=== PATIENT | female | born 1980 | race Caucasian/White ===

== ENCOUNTER 2022-09-23 12:12 | Outpatient (CLI) | payer OTHER, SELFPAY ==
[2022-09-23 22:13] LABS: Albumin* 4.8 g/dL (3.3-5.0); Chloride* 106 mmol/L (96-114); Sodium* 142 mmol/L (135-149)
[2022-09-23 22:14] LABS: Potassium* 4.2 mmol/L (3.6-5.1)
[2022-09-23 22:16] LABS: Alkaline Phosphatase* 49 U/L (40-150); Aspartate Amino Transferase* 27 U/L (12-35); Bilirubin Direct* 0.2 mg/dL (0.0-0.5); Bilirubin Total* 0.6 mg/dL (0.1-1.5); Blood Urea Nitrogen* 18 mg/dL (5-24); Creatinine* 0.8 mg/dL (0.5-1.5); Estimated Glomerular Filt Rate 95 ml/min; Glucose* 85 mg/dL (60-115); Total Protein* 7.4 g/dL (6.0-8.3)
[2022-09-23 22:17] LABS: Alanine Aminotransferase* 35 U/L (4-35); Calcium* 9.5 mg/dL (8.4-10.6); Lipase* 49 U/L (23-300)
[2022-09-23 22:23] LABS: C Reactive Protein* < 0.5 mg/dL (0.5-1.0)
[2022-09-23 22:33] LABS: Carbon Dioxide* 27 mmol/L (20-32)
== END 2022-09-23 12:13 | disposition home or self-care (01) ==
PROVIDERS: PCP Emergency Medicine; Visit Provider Emergency Medicine
DX: R10.9 Unspecified abdominal pain (principal)
CPT/HCPCS: 80048; 80076; 83690; 86140; 87338

== ENCOUNTER 2023-05-19 10:15 | Emergency (ER) | payer OTHER, SELFPAY ==
[2023-05-19 10:23] VITALS: BP 143/96; PULSE 61; RESP 16; TEMP 36.8; O2SAT 100; BMI 25.1
--- NOTE | 2023-05-19 12:08 | ED_ITS ---
HPI - General Adult General Time Seen by Provider: 12:08 Date Seen: 05/19/23 Chief complaint: Skin/Abscess/Foreign Body Stated complaint: Lump on upper abdomen Time Seen by Provider: 05/19/23 12:08 Source: patient, RN notes reviewed and old records reviewed Mode of arrival: ambulatory Limitations: no limitations History of Present Illness HPI narrative: Patient is a 42-year-old female previously healthy who comes to the emergency room with concerns regarding increasing size of mass on her left lower ribcage. Patient notes that he is she has been evaluated twice previously and even had an ultrasound a year ago at which time she was told that this area was a bruise. She notes that it has continued to increase in size and she thinks there is some skin discoloration associated with it. It is also become a little more uncomfortable in the surrounding tissue. She does admit she finds she her soft touching this area frequently. Patient has not noted any unusual weight loss, night sweats. She does have a friend who was recently diagnosed with breast cancer with a similar finding. She notes that she has been attempting to get in to see her primary Dr. Martino at the [facility] and has been unsuccessful at that. She does not want to wait to the end of the month to have this evaluated as it is causing her anxiety. Related Data Allergies Allergy/AdvReac Type Severity Reaction Status Date / Time No Known Drug Allergies Allergy Verified 05/19/23 10:23 Review of Systems Status of ROS: Reports: 6 or more systems reviewed and unremarkable except as noted in History and below Narrative: States due for a mammogram soon. No history of cancer Const: Reports: fatigue (But reports this as unchanged in normal); Denies: fever Cardio: Denies: shortness of breath with exertion Resp: Denies: shortness of breath Integ/Breast: Reports: skin tenderness Endo: Reports: fatigue (But reports this as unchanged in normal) Bryan/Lymph: Denies: enlarged lymph nodes [facility] Medical History (Updated 05/19/23 @ 12:24 by Louise Chance MD) Abdominal pain ?R10.9 - Unspecified abdominal pain (ICD-10) Social History Smoking Status: Never smoker Do you use any of these nicotine containing products: None Second hand tobacco smoke exposure: No How often do you have a drink containing alcohol: 4 or more times a week How many standard drinks containing alcohol do you have on a typical day: 1 or 2 AUDIT-C Alcohol total score: 4 Non-prescribed substance use: denies use service: No Exam Narrative: Exam Narrative: Alert and oriented. Does appear somewhat worried and anxious. Breathing normally. Examination of abdomen shows no unusual findings. I do not see significant skin change. I do palpate a mobile mass measuring approximately 2-1/2 x 2 cm. This is beneath the skin surface. I do not see a port indicate that this is a sebaceous cyst. No supraclavicular lymphadenopathy. No axillary lymphadenopathy noted. Const: Vital Signs, click to edit/add: Vital Signs - 24 hr 05/19/23 10:23 Temperature 98.3 F Pulse Rate [Pulse Oximeter] 61 Respiratory Rate 16 Blood Pressure [Ri ght Upper Arm] 143/96 H Pulse Oximetry 100 Oxygen Delivery Me thod Room Air Documenting provider has reviewed patient's vital signs: yes Course Consultations Consultation #1: Was able to speak to 1 of her ultrasound techs who notes that previous ultrasound showed that this appear to appear to be like a lipoma with a some blood vessel nearby. There is no mention of bruise in this report and so I am not sure how that was communicated to Louise in the past. Vital Signs Vital signs: Initial Vital Signs Temperature 98.3 F 05/19/23 10:23 Temperature Source Temporal Artery Scan 05/19/23 10:23 Pulse Rate 61 05/19/23 10:23 Pulse Rhythm Regular 05/19/23 10:23 Pulse Strength 3+ Normal 05/19/23 10:23 Respiratory Rate 16 05/19/23 10:23 Blood Pressure 143/96 H 05/19/23 10:23 Blood Pressure Mean 111 H 05/19/23 10:23 Blood Pressure Position Sitting 05/19/23 10:23 Pulse Oximetry 100 05/19/23 10:23 Oxygen Delivery Method Room Air 05/19/23 10:23 Vital Signs Temperature 98.3 F 05/19/23 10:23 Pulse Rate 61 05/19/23 10:23 Respiratory Rate 16 05/19/23 10:23 Blood Pressure 143/96 H 05/19/23 10:23 Pulse Oximetry 100 05/19/23 10:23 Oxygen Delivery Method Room Air 05/19/23 10:23 Temperature 98.3 F 05/19/23 10:23 Pulse Rate 61 05/19/23 10:23 Respiratory Rate 16 05/19/23 10:23 Blood Pressure 143/96 H 05/19/23 10:23 Pulse Oximetry 100 05/19/23 10:23 Oxygen Delivery Method Room Air 05/19/23 10:23 Medical Decision Making MDM Narrative Medical decision making narrative: 1. Soft tissue mass-anterior medial lower rib line. Room likely lipoma in exam nature. However given the increased size and have been able to arrange for a ultrasound repeat. Patient will then follow-up with our surgery clinic which we are trying to schedule for her on an expedited basis. 2. Disposition-patient may depart after the ultrasound. Concerning findings on the ultrasound will be called to patient today. However, she states she also has access to my chart. Medical Records Medical records reviewed: Yes I reviewed the patient's medical records Imaging Data Chest ultrasound: Attestation: I have reviewed the pertinent imaging results. Ultrasound: Attestation: I have reviewed the pertinent imaging results. Radiologist's impression: There is a relatively circumscribed area slightly increased echogenicity within the subcutaneous fat just below the skin measuring 2.3 cm Impression: Subcutaneous lipoma measuring 2.3 cm, similar to the prior study. Discharge Plan Discharge Clinical Impression: Mass of soft tissue Patient Disposition: Home, Self-Care Condition: Unchanged Additional Instructions: Follow-up with surgical consult on Follow Up/Referrals: Marya Martino MD [Primary Care Provider] - Stand Alone Forms: [facility] Info Instructions
--- NOTE | 2023-05-19 12:17 | CRLHL7_ITS ---
For Patients: As a result of the Cures Act, medical imaging exams and procedure reports are released immediately into your electronic medical record. You may view this report before your referring provider. If you have questions, please contact your health care provider. Indication: GROWING MASS LEFT MEDIAL RIBCAGE Technique: Grayscale and color Doppler ultrasound of the left upper abdomen/low, similar to the prior study. No abnormal vascularity. Er chest performed. Comparison: 01/06/2022 Findings: There is a relatively circumscribed area slightly increased echogenicity within the subcutaneous fat just below the skin measuring 2.3 cm Impression: Subcutaneous lipoma measuring 2.3 cm, similar to the prior study. Dictated by Jamaal Espinal MD @ 05/19/2023 4:44:18 PM (Electronically Signed)
--- NOTE | 2023-05-19 12:27 | ED.NURSE ---
follow up appointment made with her PCP in [place] on 05/26.
--- NOTE | 2023-05-19 12:47 | ED.NURSE ---
Patient's ultrasound completed. She has left ED ambulatory, Dr. Chance to call with concerning results. Information re: follow up appt with surgery given to patient.
== END 2023-05-19 14:29 | disposition home or self-care (01) ==
LOC: ED 12:27
PROVIDERS: Emergency Provider Family Medicine; PCP Emergency Medicine
DX: D17.1 Benign lipomatous neoplasm of skin and subcutaneous tissue of trunk (principal)
CPT/HCPCS: 76604; 99283